=== PATIENT | male | born 1965 | race Caucasian/White ===

== ENCOUNTER → 2017-03-25 | Outpatient (CLI) | payer BC ==
--- NOTE | 2017-03-25 12:30 | US ---
EXAMINATION TYPE: US bladder DATE OF EXAM: 03/25/2017 COMPARISON: NONE CLINICAL HISTORY: N40.1 BENIGN PROSTATIC HYPERPLASIA. Frequency of urination EXAM MEASUREMENTS: Post Void Residual Volume: 28.61 mL Bladder distends normally. Wall thickness within normal limits. Color Doppler performed to assess ureteral jets. Bilateral Jets seen: Yes Normal Post Void Residual (less than 50ml): Yes IMPRESSION: 1. Bladder distends normally with no definite acute process small post void residual
== END | disposition home or self-care (01) ==
LOC: RADUSWWP 12:08
PROVIDERS: ATTEND Family Medicine
DX: N40.1 Benign prostatic hyperplasia with lower urinary tract symptoms (principal)
CPT/HCPCS: 76857

== ENCOUNTER → 2018-05-29 | Outpatient (CLI) | payer BC ==
--- NOTE | 2018-05-29 15:59 | US ---
EXAMINATION TYPE: US abdomen complete DATE OF EXAM: 05/29/2018 COMPARISON: NONE CLINICAL HISTORY: D72.819 LEUKOPENIA. EXAM MEASUREMENTS: Liver Length: 15.5 cm Gallbladder Wall: 0.2 cm CBD: 0.4 cm Spleen: 9.4 cm Right Kidney: 11.2 x 5.2 x 4.2 cm Left Kidney: 11.2 x 4.9 x 4.9 cm Pancreas: Obscured by bowel gas Liver: wnl Gallbladder: wnl Evidence for sonographic Carlin's sign: No CBD: wnl Spleen: wnl Right Kidney: No hydronephrosis or masses seen Left Kidney: No hydronephrosis or masses seen Upper IVC: wnl Abd Aorta: wnl Kidneys show normal cortical medullary differentiation. No ascites. IMPRESSION: Exam is limited. No abnormality evident.
== END | disposition home or self-care (01) ==
LOC: RADUSWWP 14:49
PROVIDERS: ATTEND Internal Medicine Hematology & Oncology
DX: D72.819 Decreased white blood cell count, unspecified (principal)
CPT/HCPCS: 76700

== ENCOUNTER 2020-05-25 08:56 | Day surgery (SDC) | payer BC ==
[2020-05-23 17:44] VITALS: BMI 25.0
[~2020-05-25 08:56] MED LIST: LACTATED RINGERS 1,000 ML IV SCH; LIDOCAINE 1% (10MG/ML) FOR IV START INTRADERMA PRN
[2020-05-25 09:22] VITALS: TEMP 97.1
[2020-05-25] MEDS ORDERED: LACTATED RINGERS 1,000 ML IV ONE (10:29)
[2020-05-25] MEDS ORDERED: PROPOFOL 10 MG/ML 20 ML VIAL IV ONE (10:31)
[2020-05-25] MEDS ORDERED: LIDOCAINE 1% INJ 10MG/ML (20 ML MDV) ONE (10:31)
--- NOTE | 2020-05-25 11:09 | P.PCN ---
Date of Procedure: 05/25/20 Description of Procedure: BRIEF HISTORY: Patient is a 54-year-old male presenting for outpatient colonoscopy for screening for malignant neoplasm of the colon. He believes last colonoscopy was 8-10 years ago, and performed for blood per rectum. No family history of colon cancer. No change in bowel habits. PROCEDURE PERFORMED: Colonoscopy. PREOPERATIVE DIAGNOSIS: Screening for malignant neoplasm of the colon, last colonoscopy 8-10 years ago. ESTIMATED BLOOD LOSS: Minimal. IV sedation per Anesthesia. PROCEDURE: After informed consent was obtained, the patient, was brought into the endoscopy unit. IV sedation was administered by Anesthesia under continuous monitoring. Digital rectal examination was normal. Initially the Olympus CF-190 flexible video colonoscope was then inserted in the rectum, gradually advanced into the cecum without any difficulty. Careful examination was performed as the scope was gradually being withdrawn. Ileocecal valve and the appendiceal orifice were visualized and appeared normal. Prep was fair prep with a large amount of liquid stool with some solid components for the colon. Mucosa of the cecum, ascending colon, transverse colon, descending colon, sigmoid colon, and rectum appeared normal. Retroflexion was performed in the rectum and no lesions were seen, low-grade internal hemorrhoids and hypertrophied anal papillae noted. The patient tolerated the procedure well. IMPRESSION: Normal-appearing colon from rectum to cecum. Fair prep. Internal hemorrhoids and hypertrophied anal papillae. RECOMMENDATIONS: Findings of this examination were discussed with the patient and his family. Okay to resume diet. Okay to resume medication. Recommend repeat colonoscopy in 3 years for fair prep.
[2020-05-25 11:54] VITALS: BP 106/75; PULSE 72; RESP 17
== END 2020-05-25 12:05 | disposition home or self-care (01) ==
LOC: ORWHC2ENDO 08:56
PROVIDERS: ATTEND Internal Medicine
DX: Z12.11 Encounter for screening for malignant neoplasm of colon (principal); K64.8 Other hemorrhoids; K62.89 Other specified diseases of anus and rectum; Z79.1 Long term (current) use of non-steroidal anti-inflammatories (NSAID)
CPT/HCPCS: J2001; J2704; G0121

== ENCOUNTER 2024-10-13 11:36 | Day surgery (SDC) | payer BC ==
[2024-10-08 13:45] VITALS: BMI 27.7
[~2024-10-13 11:36] MED LIST changes: -LACTATED RINGERS 1,000 ML IV SCH
[2024-10-13] MEDS: IV FLUID CONTINUATION 1,000 ML IV ONE (13:05)
[2024-10-13 13:09] VITALS: TEMP 97.8
[2024-10-13] MEDS: LACTATED RINGERS 1,000 ML IV SCH (13:29)
[2024-10-13] MEDS ORDERED: PROPOFOL 10 MG/ML 20 ML VIAL IV ONE (13:51)
--- NOTE | 2024-10-13 14:05 | P.PCN ---
Date of Procedure: 10/13/24 Procedure(s) Performed: BRIEF HISTORY: Patient is a 58-year-old pleasant white male scheduled for an elective colonoscopy as a part of screening for colon cancer. PROCEDURE PERFORMED: Colonoscopy. PREOPERATIVE DIAGNOSIS: Screening for colon cancer. IV sedation per Anesthesia. PROCEDURE: After informed consent was obtained, the patient, was brought into the endoscopy unit. IV sedation was administered by Anesthesia under continuous monitoring. Digital rectal examination was normal. Initially the Olympus CF-160 flexible video colonoscope was then inserted in the rectum, gradually advanced into the cecum without any difficulty. Careful examination was performed as the scope was gradually being withdrawn. Ileocecal valve and the appendiceal orifice were visualized and appeared normal. Prep was excellent. Mucosa of the cecum, ascending colon, transverse colon, descending colon, sigmoid colon, and rectum appeared normal. Retroflexion was performed in the rectum and no lesions were seen. The patient tolerated the procedure well. IMPRESSION: Normal-appearing colon from rectum to cecum with no evidence of colorectal neoplasia. RECOMMENDATIONS: Findings of this examination were discussed with the patient as well as his family. He was advised to have repeat screening colonoscopy in 10 years..
[2024-10-13 14:28] VITALS: BP 100/67; PULSE 64; RESP 16
== END 2024-10-13 14:39 | disposition home or self-care (01) ==
LOC: ORWHC2ENDO 11:36
PROVIDERS: ATTEND Internal Medicine Gastroenterology
DX: Z12.11 Encounter for screening for malignant neoplasm of colon (principal); M19.90 Unspecified osteoarthritis, unspecified site; K21.9 Gastro-esophageal reflux disease without esophagitis; Z79.1 Long term (current) use of non-steroidal anti-inflammatories (NSAID)
CPT/HCPCS: 45378; J2704